=== PATIENT | female | born 1950 | race Caucasian/White ===

== ENCOUNTER 2017-04-08 07:41 | Day surgery (SDC) | payer MEDICARE, OTHER ==
[~2017-04-08] VITALS: Ht 152.4 cm; Wt 102.7 kg
[~2017-04-08 07:41] MED LIST: ATOR10TA PO; BUPR-173 PO; DILT60CA PO; FURO-93 PO; GLIM4TAB2 PO; LOSA100T6 PO; OXYC-302 PO; POTA20TA89 PO; iron PO
[2017-04-08] MEDS ORDERED: LACTATED RINGERS 1,000 ML IV SCH (08:09)
[2017-04-08 08:52] VITALS: BP 138/82
[2017-04-08] MEDS ORDERED: FENTANYL PF 100 MCG/2ML ONE ×2 (09:17→09:52)
[2017-04-08] MEDS ORDERED: MIDAZOLAM 1 MG/ML, 2ML ONE (09:17)
[2017-04-08] MEDS ORDERED: SUCCINYLCHOLINE 20 MG/ML, 10ML ONE (09:25)
[2017-04-08] MEDS ORDERED: ONDANSETRON 2MG/ML, 2ML ONE (09:25)
[2017-04-08] MEDS ORDERED: KETOROLAC 30 MG/1 ML ONE (09:25)
[2017-04-08] MEDS ORDERED: DEXAMETHASONE 4 MG/ML, 1ML ONE (09:25)
[2017-04-08] MEDS ORDERED: PROPOFOL 10 MG/ML, 20ML ONE (09:25)
[2017-04-08] MEDS ORDERED: ACETAMINOPHEN 325 MG TABLET PO PRN (10:30)
[2017-04-08] MEDS ORDERED: hydrALAzine 20 MG/ML, 1ML IV PRN (10:30)
[2017-04-08] MEDS ORDERED: PROMETHAZINE 25 MG/ML, 1ML IV PRN (10:30)
[2017-04-08] MEDS ORDERED: LABETALOL 5MG/ML, 20ML IV PRN (10:30)
[2017-04-08] MEDS ORDERED: ONDANSETRON 2MG/ML, 2ML IVPush PRN (10:30)
[2017-04-08] MEDS ORDERED: OXYcodone 5 MG/5 ML ORAL.SOL UDC PO PRN (10:30)
[2017-04-08] MEDS ORDERED: ALBUTEROL/IPRATROPIUM 2.5MG/0.5MG, 3 ML NPPB PRN (10:30)
[2017-04-08] MEDS ORDERED: HYDROmorphone 1 MG/ML, 1ML IV PRN (10:30)
[2017-04-08] MEDS ORDERED: FENTANYL PF 100 MCG/2ML IV PRN (10:30)
== END 2017-04-08 11:45 ==
LOC: OUT 07:41
PROVIDERS: ATTEND Specialist
DX: K57.30 Diverticulosis of large intestine without perforation or abscess without bleeding (principal); K21.9 Gastro-esophageal reflux disease without esophagitis; K29.70 Gastritis, unspecified, without bleeding; D50.9 Iron deficiency anemia, unspecified; I10 Essential (primary) hypertension; J45.909 Unspecified asthma, uncomplicated; E66.01 Morbid (severe) obesity due to excess calories; Z68.41 Body mass index [BMI] 40.0-44.9, adult; Z88.6 Allergy status to analgesic agent; Z88.0 Allergy status to penicillin; Z88.8 Allergy status to other drugs, medicaments and biological substances
CPT/HCPCS: 43239; 45380; 82962; 88305; J0330; J1100; J1885; J2250; J2405; J2704; J3010

== ENCOUNTER → 2017-12-01 | Outpatient (CLI) | payer MEDICARE, OTHER ==
[~2017-12-01] MED LIST changes: +OMNIPAQUE 350 MG/ML, 75ML BOTTLE ONE
== END | disposition home or self-care (01) ==
LOC: RAD 12:02
PROVIDERS: ATTEND Family Medicine
DX: R91.1 Solitary pulmonary nodule (principal); I10 Essential (primary) hypertension; K21.9 Gastro-esophageal reflux disease without esophagitis
CPT/HCPCS: 71260; Q9967

== ENCOUNTER → 2019-04-15 | Outpatient (CLI) | payer MEDICARE, OTHER ==
[~2019-04-15] MED LIST changes: -GLIM4TAB2 PO; +GLIM4TAB4 PO; +LOSA100T14 PO; -LOSA100T6 PO; -OMNIPAQUE 350 MG/ML, 75ML BOTTLE ONE
== END | disposition home or self-care (01) ==
LOC: CVU 10:21
PROVIDERS: ATTEND Internal Medicine Cardiovascular Disease
DX: I65.23 Occlusion and stenosis of bilateral carotid arteries (principal)
CPT/HCPCS: 93880